=== PATIENT | female | born 1995 | race Caucasian/White ===

== ENCOUNTER 2018-10-11 15:11 | Emergency (ER) | payer MEDICAID ==
[~2018-10-11] VITALS: Ht 160 cm; Wt 54.9 kg
[2018-10-11 15:25] VITALS: Ht 160 cm; Wt 54.9 kg
[2018-10-11 16:01] LABS: BASOPHIL % 0.1 % (0-2); PLATELET COUNT 191 x10^3mcL (130-400); RED CELL DISTRIBUTION WIDTH 13.1 % (11.5-14.5)
[2018-10-11 16:09] LABS: CALCIUM 8.8 mg/dL (8.5-10.1); CARBON DIOXIDE 22.6 mmol/L (21-32); CHLORIDE SERUM 102 mmol/L (98-107); CREATININE SERUM 0.8 mg/dL (0.6-1.0); GFR1 > 60 mL/min; GLUCOSE SERUM 115 mg/dL (74-106); POTASSIUM SERUM 3.4 mmol/L (3.5-5.1); SODIUM SERUM 136 mmol/L (136-145)
[2018-10-11 16:15] LABS: ALKALINE PHOSPHATASE 52 U/L (46-116); ALT/SGPT 12 U/L (14-59); AST/SGOT 12 U/L (15-37); BILIRUBIN TOTAL 0.36 mg/dL (0.20-1.00); LIPASE 92 IU/L (73-393); TOTAL PROTEIN, SERUM 6.8 g/dL (6.4-8.2)
[2018-10-11 16:16] LABS: ALBUMIN 3.2 g/dL (3.4-5.0)
[2018-10-11 17:43] VITALS: BP 118/68
== END 2018-10-11 17:43 | disposition home or self-care (01) ==
LOC: ED 15:11
PROVIDERS: Emergency Medicine
DX: K52.9 Noninfective gastroenteritis and colitis, unspecified (principal)
CPT/HCPCS: J1885; J7030

== ENCOUNTER 2018-10-12 02:23 | Emergency (ER) | payer MEDICAID ==
[~2018-10-12] VITALS: Ht 154.9 cm; Wt 55.3 kg
[2018-10-12 02:26] VITALS: Ht 154.9 cm; Wt 55.3 kg
[2018-10-12 02:59] LABS: BASOPHIL % 0.2 % (0-2); PLATELET COUNT 170 x10^3mcL (130-400); RED CELL DISTRIBUTION WIDTH 13.1 % (11.5-14.5)
[2018-10-12 03:06] LABS: CALCIUM 8.5 mg/dL (8.5-10.1); CARBON DIOXIDE 19.3 mmol/L (21-32); CHLORIDE SERUM 101 mmol/L (98-107); CREATININE SERUM 0.8 mg/dL (0.6-1.0); GFR1 > 60 mL/min; GLUCOSE SERUM 105 mg/dL (74-106); POTASSIUM SERUM 3.6 mmol/L (3.5-5.1); SODIUM SERUM 132 mmol/L (136-145)
[2018-10-12 03:10] LABS: ALKALINE PHOSPHATASE 52 U/L (46-116); ALT/SGPT 17 U/L (14-59); AMYLASE 51 U/L (25-115); AST/SGOT 13 U/L (15-37); BILIRUBIN TOTAL 0.33 mg/dL (0.20-1.00); LIPASE 88 IU/L (73-393); TOTAL PROTEIN, SERUM 6.7 g/dL (6.4-8.2)
[2018-10-12 03:11] LABS: ALBUMIN 3.2 g/dL (3.4-5.0)
[2018-10-12 04:03] VITALS: BP 106/61
== END 2018-10-12 04:03 | disposition home or self-care (01) ==
LOC: ED 02:23
PROVIDERS: Emergency Medicine
DX: K52.9 Noninfective gastroenteritis and colitis, unspecified (principal)
CPT/HCPCS: 36415; J1885

== ENCOUNTER 2018-10-13 16:44 | Emergency (ER) | payer MEDICAID ==
[~2018-10-13] VITALS: Ht 154.9 cm; Wt 55.3 kg
[2018-10-13 18:08] LABS: PLATELET COUNT 174 x10^3mcL (130-400)
[2018-10-13 18:15] LABS: CALCIUM 8.8 mg/dL (8.5-10.1); CARBON DIOXIDE 24.4 mmol/L (21-32); CHLORIDE SERUM 96 mmol/L (98-107); CREATININE SERUM 0.7 mg/dL (0.6-1.0); GFR1 > 60 mL/min; GLUCOSE SERUM 117 mg/dL (74-106); POTASSIUM SERUM 3.4 mmol/L (3.5-5.1); SODIUM SERUM 131 mmol/L (136-145)
[2018-10-13 18:29] LABS: ALKALINE PHOSPHATASE 56 U/L (46-116); ALT/SGPT 16 U/L (14-59); AST/SGOT 20 U/L (15-37); BILIRUBIN TOTAL 0.3 mg/dL (0.20-1.00); TOTAL PROTEIN, SERUM 7.4 g/dL (6.4-8.2)
[2018-10-13 18:42] LABS: BAND NEUTROPHIL 20 % (0-10); MONOCYTE 9 % (0-7); SEGMENTED NEUTROPHILS 56 % (37-75)
[2018-10-13 18:45] LABS: PLATELET MORPHOLOGY PLATELETS NORMAL; rbc morphology (normal/abnorm) NORMAL (NORMAL)
[2018-10-13 18:51] LABS: ALBUMIN 3.2 g/dL (3.4-5.0)
[2018-10-14 02:11] VITALS: BP 102/56
== END 2018-10-14 02:11 | disposition short-term general hospital (02) ==
LOC: ED 16:44
PROVIDERS: Emergency Medicine
DX: K52.9 Noninfective gastroenteritis and colitis, unspecified (principal); R42 Dizziness and giddiness; Z90.89 Acquired absence of other organs
CPT/HCPCS: J1885; J2270; J2405; J2543; J3490; J7030

== ENCOUNTER 2019-04-11 06:07 | Emergency (ER) | payer MEDICAID ==
[~2019-04-11] VITALS: Ht 154.9 cm; Wt 52.2 kg
[2019-04-11 06:13] VITALS: Ht 154.9 cm; Wt 52.2 kg
[2019-04-11 07:18] LABS: CALCIUM 8.8 mg/dL (8.5-10.1); CARBON DIOXIDE 24.4 mmol/L (21-32); CHLORIDE SERUM 105 mmol/L (98-107); CREATININE SERUM 0.7 mg/dL (0.6-1.0); GFR1 > 60 mL/min; GLUCOSE SERUM 97 mg/dL (74-106); POTASSIUM SERUM 3.9 mmol/L (3.5-5.1); SODIUM SERUM 140 mmol/L (136-145)
[2019-04-11 07:21] LABS: PLATELET COUNT 214 x10^3mcL (130-400); RED CELL DISTRIBUTION WIDTH 13.8 % (11.5-14.5)
[2019-04-11 07:24] LABS: ALBUMIN 4.1 g/dL (3.4-5.0); ALKALINE PHOSPHATASE 77 U/L (46-116); ALT/SGPT 37 U/L (14-59); AST/SGOT 16 U/L (15-37); BILIRUBIN TOTAL 0.66 mg/dL (0.20-1.00); CHOLESTEROL 171 mg/dL (<200); CHOLESTEROL/HDL RATIO 3.2; HDL CHOLESTEROL 54 mg/dL (40-60); LIPASE 127 IU/L (73-393); TOTAL PROTEIN, SERUM 7.5 g/dL (6.4-8.2); TRIGLYCERIDES 60 mg/dL (<150)
[2019-04-11 07:27] LABS: BASOPHIL % 0 % (0-2)
[2019-04-11 07:28] LABS: UA SPECIFIC GRAVITY 1.025 (1.005-1.035); microscopic required? YES; urine erythrocyte TRACE (NEGATIVE)
[2019-04-11 08:00] VITALS: BP 102/63
== END 2019-04-11 08:00 | disposition home or self-care (01) ==
LOC: ED 06:07
PROVIDERS: Specialist
DX: R10.10 Upper abdominal pain, unspecified (principal); R11.10 Vomiting, unspecified; R19.7 Diarrhea, unspecified
CPT/HCPCS: 36415; Q0162

== ENCOUNTER 2020-01-20 06:05 | Emergency (ER) | payer MEDICAID | END 2020-01-20 06:57 | disposition home or self-care (01) | LOC: ED 06:05 | DX: M79.632 Pain in left forearm (principal) | CPT/HCPCS: J1885 ==